=== PATIENT | female | born 1960 | race Caucasian/White ===

== ENCOUNTER → 2019-12-06 | Outpatient (CLI) | payer BC ==
[~2019-12-06] VITALS: Ht 157.5 cm; Wt 70.3 kg
[~2019-12-06] MED LIST: CLOP75TA32 PO; FENOFIBRATE PO; REGADENOSON 0.4 MG/5 ML PF SYG IVP SCH; [UNRECOGNIZED DRUG - CODE] PO
== END | disposition home or self-care (01) ==
LOC: SHCH 08:52
PROVIDERS: ATTEND Internal Medicine Cardiovascular Disease
DX: I10 Essential (primary) hypertension (principal); R07.9 Chest pain, unspecified
CPT/HCPCS: 78452; 93017; 96374; A9500 ×2; J2785

== ENCOUNTER → 2019-12-15 | Outpatient (CLI) | payer BC ==
[~2019-12-15] MED LIST changes: -REGADENOSON 0.4 MG/5 ML PF SYG IVP SCH
== END | disposition home or self-care (01) ==
LOC: SHCH 11:18
PROVIDERS: ATTEND Internal Medicine Cardiovascular Disease
DX: I10 Essential (primary) hypertension (principal); R55 Syncope and collapse
CPT/HCPCS: 93306

== ENCOUNTER 2020-06-20 09:30 | Observation (INO) | payer BC ==
[2020-06-19 11:55] LABS: BILIRUBIN,URINE Negative (NEGATIVE); COLOR,URINE Yellow (YELLOW); GLUCOSE, URINE (UA) Negative (NEGATIVE); KETONES,URINE Negative (NEGATIVE); LEUKOCYTE ESTERASE ,URINE Negative (NEGATIVE); NITRATE,URINE Negative (NEGATIVE); OCCULT BLOOD,URINE Negative (NEGATIVE); PROTEIN,URINE Negative (NEGATIVE); UROBILINOGEN,URINE 0.2 mg/dL (0.2-1.0)
[2020-06-19 12:03] LABS: BASOPHILS % (AUTO) 0.7 % (0.0-5.0); EOSINOPHILS % (AUTO) 4.9 % (0.0-8.0); HEMATOCRIT 42.2 % (36-48); LYMPHOCYTES % (AUTO) 36.3 % (21.0-51.0); MEAN CORPUSCULAR HEMOGLOBIN 29.8 pg (27.0-33.0); MEAN CORPUSCULAR HGB CONC 33.4 g/dL (32.0-36.0); MEAN CORPUSCULAR VOLUME 89.2 fL (79-99); MONOCYTES % (AUTO) 7.9 % (3.0-13.0); PLATELET COUNT (AUTO) 206 K/uL (130-400); RED BLOOD CELL COUNT(AUTO) 4.73 MIL/uL (4.00-5.50); RED CELL DISTRIBUTION WIDTH 12.8 % (11.0-15.5); WHITE BLOOD COUNT (AUTO) 4.3 K/uL (4.8-10.8)
[2020-06-19 12:11] LABS: APPEARANCE,URINE CLEAR (CLEAR)
[2020-06-19 12:15] LABS: CREATININE 0.7 mg/dL (0.5-1.5); POTASSIUM 4.5 mmol/L (3.5-5.1)
[2020-06-19 12:18] LABS: INR 0.95 (0.85-1.15); PARTIAL THROMBOPLASTIN TIME 25.7 SEC (26.3-35.5); PROTHROMBIN TIME 10.3 SEC (9.6-11.6)
[2020-06-19 16:34] VITALS: BP 133/81
[~2020-06-20] VITALS: Ht 157.5 cm; Wt 72.6 kg
[2020-06-20] VITALS (14 sets, daily range): BP systolic 101–155; BP diastolic 58–77
[~2020-06-20 09:30] MED LIST changes: +ASPI-556 PO; -FENOFIBRATE PO; +METO-408 PO; +NITR0.4T50 SL; +ROSU10TA28 PO; -[UNRECOGNIZED DRUG - CODE] PO
[2020-06-20] MEDS: SODIUM CHLORIDE 0.9% 1000ML 1,000 ML IV SCH ×4 (11:16→18:37)
[2020-06-20] MEDS ORDERED: MEPERIDINE-PF 25 MG/ML SYG ONE ×3 (11:41→12:28)
[2020-06-20] MEDS ORDERED: HEPARIN SODIUM 1000UNIT/ML 10ML VIAL ONE ×2 (11:41→12:57)
[2020-06-20] MEDS ORDERED: MIDAZOLAM HCL 1 MG/ML 2ML VIAL ONE ×3 (11:41→12:28)
[2020-06-20] MEDS ORDERED: NITROGLYCERIN 2 MG/VIAL VIAL IV ONE (11:41)
[2020-06-20] MEDS ORDERED: IOHEXOL 350 MG/ML 100ML INFUS..BTL IV ONE ×2 (11:41→13:21)
[2020-06-20] MEDS ORDERED: SODIUM BICARB 50MEQ 50ML VIAL 50 ML ONE (11:42)
[2020-06-20] MEDS ORDERED: LIDOCAINE HCL 2% 20ML ONE (11:42)
[2020-06-20] MEDS ORDERED: ATROPINE SULFATE 0.1 MG/ML 10 ML SYG IVP ONE (11:46)
[2020-06-20] MEDS ORDERED: IOHEXOL-350 75 ML VIAL IV ONE (11:49)
[2020-06-20] MEDS ORDERED: NICARDIPINE HCL 25 MG/10 ML ML IV ONE (12:02)
[2020-06-20] MEDS ORDERED: ASPIRIN 81MG TAB.CHEW ONE (14:11)
[2020-06-20] MEDS ORDERED: CLOPIDOGREL BISULFATE 75 MG TAB ONE (14:11)
[2020-06-20] MEDS ORDERED: ACETAMINOPHEN-CODEINE 300/30MG TAB PO PRN (14:15)
[2020-06-20] MEDS ORDERED: ACETAMINOPHEN 325 MG TAB PO PRN (14:15)
[2020-06-20] MEDS ORDERED: NITROGLYCERIN 0.4 MG SL TAB SL PRN (14:30)
--- NOTE | 2020-06-20 17:50 | NUR ---
Pt transported to room 422 by [facility]. Reported called to [facility] prior to sending pt upstairs. Thom notified that [facility] had already given pt's Plavix and Aspirin. PT denies any further complaints at the moment, resting comfortably in bed. Pt reminded she would have to stay in bed until the morning and reinforced the importance of refraining from bending her head or right leg. Heart Healthy Diet ordered to be sent to room prior to pt leaving.
--- NOTE | 2020-06-20 18:05 | NUR ---
RECEIVED FROM DAYPT. VIA BED. PT. AAOX3, RESP.'S EVEN AND UNLABORED. DENIES ANY C/O SOB, DENIES ANY CURRENT PAIN. PLEASANT, TALKATIVE, IN GOOD SPIRITS. INSTRUCTED ON CONTINUED BR PER MD ORDERS, VERBALIZED UNDERSTANDING. RIGHT GROIN WITH PRESSURE DRSG IN PLACE, D/I; TENDER ON PALPATION, PT. STATES," IT WAS LIKE THAT FROM ALL THE PRESSING THEY DID DOWNSTAIRS." FEET WARM, PP'S (+) BILATERALLY; DENIES ANY C/O NUMBNESS OR TINGLING. COMPLETE ASSESSMENT DONE. CALL LIGHT WITHIN REACH. BED PLACED IN REVERSE [place] POSITION FOR COMFORT. CALL LIGHT WITHIN REACH, VERBALIZED ABILITY TO USE.
[2020-06-20] MEDS ORDERED: CLOPIDOGREL BISULFATE 75 MG TAB PO SCH (21:00)
[2020-06-20] MEDS ORDERED: NON-FORMULARY MEDICATION 1 EACH (Rosuvastatin Calcium 10 MG) PO SCH (21:00)
[2020-06-20] MEDS ORDERED: METOPROLOL SUCCINATE 12.5 MG PO SCH (21:00)
[2020-06-20] MEDS ORDERED: ATORVASTATIN CALCIUM 20 MG TABLET PO SCH (21:00)
[2020-06-20] MEDS ORDERED: ASPIRIN 81 MG EC TAB PO SCH (21:00)
[2020-06-20] MEDS ORDERED: TEMAZEPAM 7.5 MG CAPSULE PO ONE ×2 (22:09→22:15)
[2020-06-21 04:26] VITALS: BP 102/63
[2020-06-21 05:30] LABS: MEAN CORPUSCULAR HEMOGLOBIN 30.2 pg (27.0-33.0); MEAN CORPUSCULAR HGB CONC 34.2 g/dL (32.0-36.0); MEAN CORPUSCULAR VOLUME 88.5 fL (79-99); RED BLOOD CELL COUNT(AUTO) 4.07 MIL/uL (4.00-5.50); RED CELL DISTRIBUTION WIDTH 12.8 % (11.0-15.5); WHITE BLOOD COUNT (AUTO) 5.5 K/uL (4.8-10.8)
[2020-06-21 05:32] LABS: CREATININE 0.6 mg/dL (0.5-1.5); POTASSIUM 3.9 mmol/L (3.5-5.1)
[2020-06-21 08:00] VITALS: BP 108/66
[2020-06-21 11:34] VITALS: BP 107/64
--- NOTE | 2020-06-21 12:00 | NUR ---
DC PT AWAKE, ALERT, AND ORIENTED. DC INSTRUCTIONS GIVEN TO PT, ACKNOWLEDGED ALL OF INFORMATION, ALL QUESTIONS AND CONCERNS ANSWERED. RIGHT GROIN INTACT, NO DRAINAGE OR HEMATOMA, PEDAL PULSES PALPABLE. EDUCATED ON IMPORTANCE OF TAKING ALL MEDICATIONS PREVIOUSLY PRESCRIBED; ACKNOWLEDGED ALL INFORMATION. MADE AWARE TO DIAL 911 OR RETURN TO ER IN CASE OF EMERGENCY. AWAITING FOR TRANSPORTATION
== END 2020-06-21 12:51 | disposition home or self-care (01) ==
LOC: DAH 09:30 → DAHIP 09:31 → 4DH 18:26
PROVIDERS: ADMIT Internal Medicine; ATTEND Internal Medicine
DX: I25.119 Atherosclerotic heart disease of native coronary artery with unspecified angina pectoris (principal); E78.5 Hyperlipidemia, unspecified; Z86.73 Personal history of transient ischemic attack (TIA), and cerebral infarction without residual deficits; Z98.890 Other specified postprocedural states
CPT/HCPCS: 36415 ×2; 71045; 76705; 76882; 80048 ×2; 81003; 85025; 85027; 85610; 85730; 92921; 93005; 93454; 96360; 96361 ×2; A4215; A4216; A4221; A4222; A4223 ×3; A4663; C1725 ×4; C1760; C1769 ×3; C1874 ×2; C1887 ×3; C1894 ×2; C9600 ×2; G0378 ×16; J1644 ×3; J2175 ×3; J2250 ×3; J3490 ×4; J7030 ×3; Q9965; Q9967 ×2; 99156; 99157; J0461

== ENCOUNTER → 2022-07-24 | Outpatient (CLI) | payer BC ==
[2022-07-24 12:22] LABS: BASOPHILS % (AUTO) 0.9 % (0.0-5.0); EOSINOPHILS % (AUTO) 4.3 % (0.0-8.0); HEMATOCRIT 41.1 % (36-48); LYMPHOCYTES % (AUTO) 37.1 % (21.0-51.0); MEAN CORPUSCULAR HEMOGLOBIN 30.6 pg (27.0-33.0); MEAN CORPUSCULAR HGB CONC 34.1 g/dL (32.0-36.0); MEAN CORPUSCULAR VOLUME 89.7 fL (79-99); MONOCYTES % (AUTO) 8.3 % (3.0-13.0); NEUTROPHILS % (AUTO) 49.2 % (40.0-77.0); PLATELET COUNT (AUTO) 197 K/uL (130-400); RED BLOOD CELL COUNT(AUTO) 4.58 MIL/uL (4.00-5.50); RED CELL DISTRIBUTION WIDTH 12.2 % (11.0-15.5); WHITE BLOOD COUNT (AUTO) 4.2 K/uL (4.8-10.8)
[2022-07-24 13:04] LABS: CREATININE 0.7 mg/dL (0.5-1.5); POTASSIUM 4.4 mmol/L (3.5-5.1); THYROID STIMULATING HORMONE 0.98 uIU/mL (0.36-3.74); TOTAL PROTEIN, SERUM 7.5 g/dL (6.0-8.3)
[2022-07-24 13:19] LABS: T4 (THYROXINE) 6.3 ug/dL (4.7-13.3)
[2022-07-24 13:24] LABS: HEMOGLOBIN A1C 6.6 % (4.0-6.0)
== END | disposition home or self-care (01) ==
LOC: LAB 10:42
PROVIDERS: ATTEND Internal Medicine Cardiovascular Disease
DX: R00.2 Palpitations (principal); I25.10 Atherosclerotic heart disease of native coronary artery without angina pectoris
CPT/HCPCS: 36415; 80053; 80061; 83036; 84436; 84443; 84479; 85025

== ENCOUNTER → 2023-06-21 | Outpatient (CLI) | payer BC | END | disposition home or self-care (01) | LOC: SHCH 08:19 | PROVIDERS: ATTEND Internal Medicine Cardiovascular Disease | DX: R55 Syncope and collapse (principal) | CPT/HCPCS: 93880 ==